=== PATIENT | male | born 1945 | race Caucasian/White ===

== ENCOUNTER 2016-10-16 10:41 | Day surgery (SDC) | payer MEDICARE ==
[~2016-10-16] VITALS: Ht 175.3 cm; Wt 80.5 kg
[2016-10-16] VITALS (10 sets, daily range): BP systolic 111–144; BP diastolic 63–84; PULSE 52–84; RESP 16–18; TEMP 97.7–97.8; O2SAT 97
[2016-10-16] MEDS ORDERED: ASPI1TAB69 PO (11:29)
[2016-10-16] MEDS ORDERED: AMLO5TAB2 PO (11:29)
[2016-10-16] MEDS ORDERED: ATOR1TAB18 PO (11:29)
[2016-10-16] MEDS ORDERED: POTA595T (11:29)
[2016-10-16] MEDS ORDERED: LISI40TA PO (11:29)
[2016-10-16] MEDS ORDERED: SODIUM CHLOR 0.9% 1000 ML INJ 1,000 ML IV SCH (11:30)
[2016-10-16 11:58] LABS: AUTOMATED NEUTROPHIL # 2.8 TH/MM3 (1.8-7.7); BASOPHIL % 0.5 % (0.0-2.0); EOSINOPHIL % 0.9 % (0.0-4.0); HEMATOCRIT 44.2 % (39.0-51.0); HEMO FLAGS DIFF FINAL; LYMPH % 33.7 % (9.0-44.0); LYMPHOCYTE # 1.8 TH/MM3 (1.0-4.8); MEAN CELL VOLUME 91.8 FL (80.0-100.0); MEAN CORPUSCULAR HEMOGLOBIN 31.7 PG (27.0-34.0); MEAN CORPUSCULAR HGB CONC 34.6 % (32.0-36.0); MONO % 12.7 % (0.0-8.0); NEUT % 52.2 % (16.0-70.0); PLATELET COUNT 196 TH/MM3 (150-450); RED BLOOD COUNT 4.82 MIL/MM3 (4.50-5.90); RED CELL DISTRIBUTION WIDTH 13.8 % (11.6-17.2); WHITE BLOOD COUNT 5.3 TH/MM3 (4.0-11.0)
[2016-10-16 12:07] LABS: APTT (PATIENT) 28.5 SEC (24.3-30.1); INTERNATIONAL NORMALIZED RATIO 0.9 RATIO
[2016-10-16 12:23] LABS: BICARBONATE 28.1 MEQ/L (21.0-32.0); POTASSIUM 3.8 MEQ/L (3.5-5.1)
[2016-10-16] MEDS ORDERED: MIDAZOLAM HCL 2 MG/2 ML VIAL ONE (12:39)
[2016-10-16] MEDS ORDERED: HEPARIN-NS/PF INJ 500 ML ONE (12:39)
[2016-10-16] MEDS ORDERED: BIVALIRUDIN 250 MG VIAL ONE (13:31)
[2016-10-16] MEDS ORDERED: STERILE WATER FOR INJECTION 10 ML VIAL ONE (13:31)
[2016-10-16] MEDS ORDERED: CLOPIDOGREL 300 MG TAB ONE (13:58)
[2016-10-16] MEDS ORDERED: IOHEXOL 350 MG/ML 100 ML BTL (for Cath Lab) OTHER ONE (14:00)
[2016-10-16] MEDS ORDERED: BIVALIRUDIN INJ 250 MG in SODIUM CHLORIDE 0.9% INJ 50 ML IV SCH (14:02)
[2016-10-16] MEDS ORDERED: LIDOCAINE 2% JELLY 30 ML TUBE TOP PRN (14:15)
[2016-10-16] MEDS ORDERED: MISC INFORMATION XX ONE (14:15)
[2016-10-16] MEDS ORDERED: CLOPIDOGREL 300 MG TAB PO ONE (14:15)
[2016-10-16] MEDS ORDERED: ATROPINE SULFATE 1 MG/ML VIAL IV PRN (14:15)
[2016-10-16] MEDS ORDERED: METOCLOPRAMIDE HCL 10 MG/2 ML VIAL IV PRN (14:15)
[2016-10-16] MEDS ORDERED: LIDOCAINE HCL 1% 50 ML VIAL INFIL PRN (14:15)
[2016-10-16] MEDS ORDERED: oxyCODONE/ACETAMINOPHEN 5 MG/325 MG TAB PO PRN (14:15)
[2016-10-16] MEDS ORDERED: ISOSORBIDE MONONITRATE 30 MG TAB PO ONE (14:15)
[2016-10-16] MEDS ORDERED: MORPHINE SULFATE 4 MG/ML INJ IV PUSH PRN (14:15)
[2016-10-16] MEDS ORDERED: SODIUM CHLOR 0.9% 250 ML INJ 250 ML IV PRN (14:15)
[2016-10-16] MEDS ORDERED: LORazepam 2 MG/ML VIAL IV PRN (14:15)
[2016-10-16] MEDS ORDERED: BACITRACIN OINT 0.9 GM PKT TOP ONE (14:15)
[2016-10-16] MEDS ORDERED: oxyCODONE/ACETAMINOPHEN 10 MG/325 MG TAB PO PRN (14:15)
[2016-10-16] MEDS ORDERED: ONDANSETRON HCL 4 MG/2 ML VIAL IV PRN (14:15)
[2016-10-16] MEDS ORDERED: METO25TA3 PO (14:16)
[2016-10-16] MEDS ORDERED: PLAV75TA29 PO (14:16)
[2016-10-16] MEDS ORDERED: ISOS30TA3 PO (14:16)
--- NOTE | 2016-10-16 14:51 | MA ---
cc: TRE MARSH DATE: 10/16/2016 PROCEDURE PERFORMED 1. Fluoroscopy with interpretation. 2. Coronary angiography. 3. Coronary bypass graft angiography. METHOD The risks, benefits and alternatives were discussed with the patient. The patient understood and consented to the procedure. The patient was brought into the catheterization lab and was placed on catheterization table. The right groin was prepped and draped in sterile fashion. The right groin was anesthetized with 2% lidocaine. The right common femoral was cannulated and a 5-[place], 11 cm sheath was placed without difficulty. CORONARY ANGIOGRAPHY 1. The left main coronary has 30% stenosis distally. 2. The left anterior descending coronary is 100% occluded proximally. 3. The left circumflex gives rise to a first obtuse marginal branch which is occluded proximally. It is a co-dominant vessel giving rise to a left-sided posterior descending branch. The posterior descending branch is a moderate caliber size vessel. There is a proximal 75% stenosis which is discrete in nature. There is rather diffuse disease throughout the distal circumflex itself, estimated severity about 40-50%. 4. The right coronary is a tortuous vessel giving rise to a posterior descending branch. The proximal right coronary has a 50% stenosis. The remainder of the vessel has minor luminal irregularities. CORONARY BYPASS GRAFT ANGIOGRAPHY 1. The left internal mammary to left anterior descending coronary is widely patent. The left anterior descending coronary is widely patent. 2. The saphenous vein graft to the first obtuse marginal branch and sub-branch has a 95% stenosis in the distal body of the graft. 3. The saphenous vein graft to probable diagonal branch is occluded. PERCUTANEOUS INTERVENTION The saphenous vein graft to the obtuse marginal branch was selectively engaged with a LCB catheter. Angiomax was administered throughout the entire procedure to maintain appropriate anticoagulation. A 0.014, 180 cm [employer] Runthrough wire was navigated down the distal first obtuse marginal branch. A 2.5 x 10 mm RX Euphora balloon was then predilated on two sequential inflations to 10 atmospheres in the distal graft. Repeat angiography showed still residual stenosis present. A 2.5 x 14 mm RX Resolute drug-eluting stent was advanced down to the distal vein graft and deployed. Repeat angiography showed no residual stenosis. The wire was removed. The sheath was sewn into place, to be removed with manual hemostasis. CONCLUSIONS 1. Severe three-vessel [place] coronary artery disease. 2. Two of three coronary bypass grafts are patent. There is severe 95% stenosis in the distal body of the saphenous vein graft to the obtuse marginal branch. 3. Successful endovascular stenting with drug-eluting stent to the saphenous vein graft to the obtuse marginal branch. PLAN The patient will be monitored closely for any post procedural complications. Hopefully this will translate well with symptomatic improvement. He will be initiated on Plavix. We are going to switch his amlodipine to metoprolol. For his small vessel disease will also add a long-acting nitrate. If he has any residual symptoms may consider staged intervention of the left-sided posterior descending branch, but hopefully we can just medically manage him. MD EDDIE Zarate/LUIS /2:14 PM /2:41 PM
[2016-10-16] MEDS ORDERED: ATORVASTATIN 80 MG TAB PO SCH (21:00)
[2016-10-16] MEDS: METOPROLOL TARTRATE 25 MG TAB PO SCH ×2 (21:00→21:53)
[2016-10-17] VITALS (12 sets, daily range): BP systolic 103–120; BP diastolic 63–73; PULSE 44–59; RESP 16–18; TEMP 98.2–99.6; O2SAT 96
[2016-10-17 06:50] LABS: AUTOMATED NEUTROPHIL # 5.3 TH/MM3 (1.8-7.7); BASOPHIL # 0.1 TH/MM3 (0-0.2); BASOPHIL % 0.8 % (0.0-2.0); EOSINOPHIL # 0.1 TH/MM3 (0-0.4); EOSINOPHIL % 1.5 % (0.0-4.0); HEMATOCRIT 42.4 % (39.0-51.0); HEMO FLAGS DIFF FINAL; LYMPH % 22.1 % (9.0-44.0); LYMPHOCYTE # 1.8 TH/MM3 (1.0-4.8); MEAN CORPUSCULAR HEMOGLOBIN 31.2 PG (27.0-34.0); MEAN CORPUSCULAR HGB CONC 33.3 % (32.0-36.0); MONO % 11.1 % (0.0-8.0); NEUT % 64.5 % (16.0-70.0); PLATELET COUNT 174 TH/MM3 (150-450); RED BLOOD COUNT 4.51 MIL/MM3 (4.50-5.90); WHITE BLOOD COUNT 8.1 TH/MM3 (4.0-11.0)
[2016-10-17 07:13] LABS: BICARBONATE 26.9 MEQ/L (21.0-32.0); POTASSIUM 4.2 MEQ/L (3.5-5.1)
[2016-10-17 07:14] LABS: HDL CHOLESTEROL 36.6 MG/DL (40.0-60.0)
--- NOTE | 2016-10-17 07:57 | PD.CARD.PN ---
Subjective Subjective Remarks denies chest pain (Peter Laws) Objective Vital Signs / I&O Vital Signs Date Time Temp Pulse Resp B/P Pulse Ox O2 Delivery O2 Flow Rate FiO2 10/17/16 03:06 50 10/17/16 00:00 98.2 50 18 120/70 96 10/16/16 20:00 97.7 84 18 111/63 97 10/16/16 18:04 55 10/16/16 17:06 74 10/16/16 16:31 54 10/16/16 15:30 97.8 55 18 141/84 97 10/16/16 15:30 55 10/16/16 14:16 Room Air 10/16/16 11:30 97.8 52 16 144/75 97 I/O 10/16/16 10/16/16 10/16/16 10/17/16 10/17/16 10/17/16 07:00 15:00 23:00 07:00 15:00 23:00 Intake Total 480 ml Output Total 700 ml Balance -220 ml Intake Oral 480 ml Output Urine Total 700 ml # Bowel Movements 0 Physical Exam GENERAL: Well-nourished, well-developed patient in no apparent distress. NECK: No JVD. No carotid bruit. CARDIOVASCULAR: Regular rate and rhythm. S1/S2 no murmur, rub, or gallop. RESPIRATORY: No accessory muscle use. Clear to auscultation. Breath sounds equal bilaterally. GASTROINTESTINAL: Abdomen soft, non-tender, nondistended. MUSCULOSKELETAL: Extremities without clubbing, cyanosis, or edema. right groin C /D/I, right femoral pulse 2+ Laboratory Laboratory Tests Test 10/16/16 10/16/16 10/17/16 11:37 11:42 04:40 White Blood Count 5.3 TH/MM3 8.1 TH/MM3 Red Blood Count 4.82 MIL/MM3 4.51 MIL/MM3 Hemoglobin 15.3 GM/DL 14.1 GM/DL Hematocrit 44.2 % 42.4 % Mean Corpuscular Volume 91.8 FL 94.0 FL Mean Corpuscular Hemoglobin 31.7 PG 31.2 PG Mean Corpuscular Hemoglobin 34.6 % 33.3 % Concent Red Cell Distribution Width 13.8 % 14.0 % Platelet Count 196 TH/MM3 174 TH/MM3 Mean Platelet Volume 9.3 FL 10.0 FL Neutrophils (%) (Auto) 52.2 % 64.5 % Lymphocytes (%) (Auto) 33.7 % 22.1 % Monocytes (%) (Auto) 12.7 % 11.1 % Eosinophils (%) (Auto) 0.9 % 1.5 % Basophils (%) (Auto) 0.5 % 0.8 % Neutrophils # (Auto) 2.8 TH/MM3 5.3 TH/MM3 Lymphocytes # (Auto) 1.8 TH/MM3 1.8 TH/MM3 Monocytes # (Auto) 0.7 TH/MM3 0.9 TH/MM3 Eosinophils # (Auto) 0.0 TH/MM3 0.1 TH/MM3 Basophils # (Auto) 0.0 TH/MM3 0.1 TH/MM3 CBC Comment DIFF FINAL DIFF FINAL Differential Comment Prothrombin Time 10.0 SEC Prothromb Time International 0.9 RATIO Ratio Activated Partial 28.5 SEC Thromboplast Time Sodium Level 142 MEQ/L 142 MEQ/L Potassium Level 3.8 MEQ/L 4.2 MEQ/L Chloride Level 108 MEQ/L 109 MEQ/L Carbon Dioxide Level 28.1 MEQ/L 26.9 MEQ/L Anion Gap 6 MEQ/L 6 MEQ/L Blood Urea Nitrogen 15 MG/DL 12 MG/DL Creatinine 0.80 MG/DL 0.96 MG/DL Estimat Glomerular Filtration 96 ML/MIN 77 ML/MIN Rate Random Glucose 104 MG/DL 81 MG/DL Calcium Level 8.9 MG/DL 8.4 MG/DL Blood Type O POSITIVE O POSITIVE Antibody Screen NEGATIVE Total Creatine Kinase 80 U/L Triglycerides Level 149 MG/DL Cholesterol Level 117 MG/DL LDL Cholesterol 51 MG/DL HDL Cholesterol 36.6 MG/DL Cholesterol/HDL Ratio 3.19 RATIO (Peter Laws) Assessment and Plan Problem List: (1) CAD (coronary artery disease) Assessment and Plan s/p PCI ADOLPH SVG-OM, doing well. Continue present medical regimen, d/c home and f /u with us in 2 weeks (Peter Laws) Assessment and Plan doing well DC BB due to bradycardia. cont asa plavix statin korey nitrate FU in OPD (Donta Piña MD) Peter Laws Oct 17, 2016 07:57 Donta Piña MD Oct 17, 2016 08:19
[2016-10-17] MEDS ORDERED: ASPIRIN EC 81 MG TABEC PO SCH (09:00)
[2016-10-17] MEDS ORDERED: CLOPIDOGREL 75 MG TAB PO SCH (09:00)
[2016-10-17] MEDS ORDERED: ASPIRIN 81 MG CHEW TAB PO SCH (09:00)
[2016-10-17] MEDS ORDERED: LISINOPRIL 20 MG TAB PO SCH (09:00)
--- NOTE | 2016-10-17 13:11 | EKG ---
Date Performed: 10/17/2016 Time Performed: 06:02:40 PTAGE: 71 years EKG: Sinus bradycardia Leftward axis Left ventricular hypertrophy Extensive ST-T changes may be due to hypertrophy and/or ischemia Abnormal ECG NO PREVIOUS TRACING DOCTOR: Elías Velazquez Interpretating Date/Time 10/17/2016 13:09:53
== END 2016-10-17 10:36 | disposition home or self-care (01) ==
LOC: HCAT 10:41 → HDIC 10:43 → HCIN 15:27 → HCAT 10-17 10:36
PROVIDERS: ATTEND Internal Medicine
DX: I25.110 Atherosclerotic heart disease of native coronary artery with unstable angina pectoris (principal); T82.858A Stenosis of other vascular prosthetic devices, implants and grafts, initial encounter; I10 Essential (primary) hypertension; E78.5 Hyperlipidemia, unspecified; Z79.01 Long term (current) use of anticoagulants; Z79.02 Long term (current) use of antithrombotics/antiplatelets
CPT/HCPCS: 80048; 80061; 82550; 85025; 85610; 85730; 86850; 86900; 86901; 92937; 93005; 93454; C1725; C1769; C1874; C1887; C1893; J0583; J1644; J2250; J3010; J7030; Q9967